=== PATIENT | female | born 1950 | race Caucasian/White ===

== ENCOUNTER 2024-11-25 09:38 | Emergency (ER) | payer OTHER ==
[2024-11-25 09:59] LABS: Absolute Basophils 0.1 K/uL (0-0.5); Absolute Monocytes 0.4 K/uL (0.1-1.3); Basophils % 0.7 % (0-1.3); Eosinophils % 0.3 % (0-4.4); Hematocrit 41.6 % (36.0-45.0); Hemoglobin 14.6 g/dL (12.0-15.0); Lymphocytes % 37.8 % (15.3-44.8); MCV 88.4 fL (80-100); Monocytes % 4.1 % (3.3-12.3); Neutrophils % 57.1 % (41.7-73.7); Platelets 225 thou/uL (152-406); Red Cell Distribution Width 14.3 % (12.1-15.2)
--- NOTE | 2024-11-25 10:09 | RAD REPORT ---
EXAM: CT brain without contrast HISTORY: vertigo;Dizziness COMPARISON: None TECHNIQUE: Multiple contiguous axial images were obtained and a CT of the brain without contrast. Sag ittal and coronal reformats were performed. One or more of the following dose reduction techniques were used: Automated exposure control, adjust ment of the mA and/or kV according to patient size, and/or iterative reconstruction. FINDINGS: No evidence of hydrocephalus, intracranial hemorrhage, or extra-axial fluid collection. The brain is normal in morphology. No evidence of midline shift or areas of brain edema. The calvarium is intact. The visualized paranasal sinuses and mastoid air cells are essentially clear . IMPRESSION: No evidence of acute intracranial abnormality.
[2024-11-25 10:19] LABS: Anion Gap 9.8 mEq/L (5.0-15.0); Potassium 3.8 mEq/L (3.5-5.1)
[2024-11-25] MEDS ORDERED: MECLIZINE HCL 12.5 MG TAB ONE (10:52)
--- NOTE | 2024-11-25 11:07 | EDPHYS ---
Physician Documentation [facility] Name: Roldan Gagnon Age: 73 yrs Sex: Female : 1950 Arrival Date: 11/25/2024 Time: 09:38 Bed 16 Private MD: ED Physician Wilfrido Mckenna HPI: 11/25 09:51 This 73 yrs old Female presents to ER via Unassigned with complaints of Dizziness. sp3 09:51 73-year-old female with history of depression and prior benign vertigo with no other sp3 medical history now presents to the ED with chief complaint of vertigo symptoms described as the room "moving". EMS found patient with normal vital signs except heart rate in the 50-60 range. Patient denies headache, neck pain, extremity pain, chest pain, shortness of breath, other neurological complaint, fall, trauma, travel history, known sick contacts, fever, or any other signs or symptoms on ROS at this time.. Historical: - Allergies: 09:52 Codeine; iw 09:52 Sulfa (Sulfonamide Antibiotics); iw 09:52 Wellbutrin; iw - Home Meds: 09:52 citalopram 40 mg tablet daily [Active]; iw - PMHx: 09:52 Depressive disorder; iw - PSHx: 09:52 bowel resection; hysterectomy; hernia; iw - Immunization history:: Adult Immunizations up to date. - Infectious Disease History:: Denies. - Social history:: Smoking status: Patient reports the use of cigarette tobacco products, smokes one pack cigarettes per day. ROS: 09:52 Constitutional: Negative for fever, chills, and weight loss, Eyes: Negative for injury, sp3 pain, redness, and discharge, ENT: Negative for injury, pain, and discharge, Neck: Negative for injury, pain, and swelling, Cardiovascular: Negative for chest pain, palpitations, and edema, Respiratory: Negative for shortness of breath, cough, wheezing, and pleuritic chest pain, Abdomen/GI: Negative for abdominal pain, nausea, vomiting, diarrhea, and constipation, Back: Negative for injury and pain, MS/Extremity: Negative for injury and deformity, Skin: Negative for injury, rash, and discoloration, Psych: Negative for depression, anxiety, suicide ideation, homicidal ideation, and hallucinations, Allergy/Immunology: Negative for hives, rash, and allergies, Endocrine: Negative for neck swelling, polydipsia, polyuria, polyphagia, and marked weight changes, Hematologic/Lymphatic: Negative for swollen nodes, abnormal bleeding, and unusual bruising, 09:52 All other systems are negative, Exam: 09:52 Constitutional: This is a well developed, well nourished patient who is awake, alert, sp3 and in no acute distress. Head/Face: Normocephalic, atraumatic. ENT: Nares patent. No nasal discharge, no septal abnormalities noted. External auditory canals are clear. Oropharynx with no redness, swelling, or masses, exudates, or evidence of obstruction, uvula midline. Mucous membranes moist. Neck: Trachea midline, no thyromegaly or masses palpated, and no cervical lymphadenopathy. Supple, full range of motion without nuchal rigidity, or vertebral point tenderness. No Meningismus. Chest/axilla: Normal chest wall appearance and motion. Nontender with no deformity. No lesions are appreciated. Cardiovascular: Regular rate and rhythm with a normal S1 and S2. No gallops, murmurs, or rubs. Normal PMI, no JVD. No pulse deficits. Respiratory: Lungs have equal breath sounds bilaterally, clear to auscultation and percussion. No rales, rhonchi or wheezes noted. No increased work of breathing, no retractions or nasal flaring. Abdomen/GI: Soft, non-tender, with normal bowel sounds. No distension or tympany. No guarding or rebound. No evidence of tenderness throughout. Back: No spinal tenderness. No costovertebral tenderness. Full range of motion. Skin: Warm, dry with normal turgor. Normal color with no rashes, no lesions, and no evidence of cellulitis. MS/ Extremity: Pulses equal, no cyanosis. Neurovascular intact. Full, normal range of motion. Psych: Awake, alert, with orientation to person, place and time. Behavior, mood, and affect are within normal limits. 09:52 Neuro: Patient with horizontal nystagmus noted. Pupils are equal bilaterally. Remainder of neurological exam is completely normal., 11:03 ECG was reviewed by the Attending Physician. EKG demonstrates sinus bradycardia 51 bpm sp3 with normal intervals, normal QRS, normal axis, normal ST/T-segment's without evidence of acute ischemia. Vital Signs: 09:50 BP 135 / 80; Pulse 57; Resp 16; Temp 98.1; Pulse Ox 98% on R/A; Weight 90.72 kg; Height iw 5 ft. 7 in. ; Pain 0/10; 10:45 BP 134 / 67; Pulse 57; Resp 15; Pulse Ox 98% on R/A; cm10 11:15 BP 127 / 79; Pulse 58; Resp 16; Pulse Ox 100% on R/A; cm10 11:45 BP 134 / 75; Pulse 58; Resp 16; Pulse Ox 98% on R/A; cm10 09:50 Body Mass Index 31.32 (90.72 kg, 170.18 cm) iw 09:50 Pain Scale: Adult iw MDM: 09:41 Medical Screening Exam initiated sp3 09:53 Data reviewed: vital signs, nurses notes, lab test result(s), EKG, radiologic studies. sp3 ED course: 73-year-old female with vertigo. Differential diagnosis includes peripheral vertigo versus central vertigo versus other intracranial process including bleed. Vital signs are normal here with heart rate at 57. Will obtain EKG, generalized labs including troponin, CT scan of the head and will treat with meclizine 25 mg p.o. Patient is not on any medication for vertigo at the moment. Patient denies any ringing in her ears or other URI type symptoms. Clinically I am not highly suspicious of sepsis, shock, or any other critical pathology at this time. Disposition pending workup and patient course.. 11:05 ED course: Patient feels better. Workup negative and we will safely discharge home with sp3 p.o. meclizine prescription.. 11/25 09:42 Order name: Basic Metabolic Panel; Complete Time: 10:24 sp3 11/25 09:42 Order name: CBC with Diff; Complete Time: 10:24 sp3 11/25 09:42 Order name: Troponin HS; Complete Time: 10:24 sp3 11/25 09:42 Order name: CT Head Brain wo Cont; Complete Time: 10:15 sp3 11/25 09:42 Order name: EKG - Nurse/Tech; Complete Time: 11:00 sp3 11/25 09:42 Order name: IV Saline Lock; Complete Time: 09:53 sp3 11/25 09:42 Order name: Labs collected and sent; Complete Time: 09:53 sp3 Administered Medications: 11:00 Drug: Meclizine PO 25 mg PO once Route: PO; cm10 11:50 Follow up: Response: No adverse reaction; Marked relief of symptoms cm10 Disposition Summary: 11/25/24 11:07 Discharge Ordered Notes: Location: Home sp3 Condition: Stable sp3 Diagnosis - Vertigo sp3 Followup: sp3 - With: Private Physician - When: Upon discharge from the Emergency Department - Reason: Continuance of care Discharge Instructions: - Discharge Summary Sheet sp3 - Vertigo sp3 Forms: - Medication Reconciliation Form sp3 - Antibiotic Education sp3 - Prescription Opioid Use sp3 - Patient Portal Instructions sp3 - Leadership Thank You Letter sp3 Prescriptions: - Meclizine 25 mg Oral Tablet - take 1 tablet ORAL route every 8 hours As needed; 30 tablet; Refills: 0, sp3 Product Selection Permitted Signatures: Dispatcher [employer] EDAugusta Liu, KANA ROGER iw Wilfrido Mckenna MD MD sp3 Aliya Gutiérrez RN RN cm10 Corrections: (The following items were deleted from the chart) 09:42 09:42 BASIC METABOLIC PANEL+C.LAB.BRZ ordered. EDMS EDMS 09:42 09:42 CBC+H.LAB.BRZ ordered. EDMS EDMS 09:42 09:42 Troponin High Sensitivity+C.LAB.BRZ ordered. EDMS EDMS 09:42 09:42 Head Brain Wo Cont+CT.RAD.BRZ ordered. EDMS EDMS
--- NOTE | 2024-11-25 11:07 | ER ---
Nurse's Notes [facility] Name: Roldan Gagnon Age: 73 yrs Sex: Female : 1950 Arrival Date: 11/25/2024 Time: 09:38 Bed 16 Private MD: Diagnosis: Vertigo Presentation: 11/25 09:50 Chief complaint: EMS states: vertigo/dizziness since last night , worse when moving. iw Coronavirus screen: At this time, the client does not indicate any symptoms associated with coronavirus-19. Ebola Screen: No symptoms or risks identified at this time. Initial Sepsis Screen: Does the patient meet any 2 criteria? No. Patient's initial sepsis screen is negative. Does the patient have a suspected source of infection?. Risk Assessment: Do you want to hurt yourself or someone else? Patient reports no desire to harm self or others. Onset of symptoms was November 24, 2024. 09:50 Method Of Arrival: EMS: [facility] iw 09:50 Acuity: GAUTAM 3 iw Historical: - Allergies: 09:52 Codeine; iw 09:52 Sulfa (Sulfonamide Antibiotics); iw 09:52 Wellbutrin; iw - Home Meds: 09:52 citalopram 40 mg tablet daily [Active]; iw - PMHx: 09:52 Depressive disorder; iw - PSHx: 09:52 bowel resection; hysterectomy; hernia; iw - Immunization history:: Adult Immunizations up to date. - Infectious Disease History:: Denies. - Social history:: Smoking status: Patient reports the use of cigarette tobacco products, smokes one pack cigarettes per day. Screenin:07 [facility] ED Fall Risk Assessment (Adult) History of falling in the last 3 months, cm10 including since admission No falls in past 3 months (0 pts) Confusion or Disorientation No (0 pts) Intoxicated or Sedated No (0 pts) Impaired Gait No (0 pts) Mobility Assist Device Used No (0 pt) Altered Elimination No (0 pt) Score/Fall Risk Level 0 - 2 = Low Risk Oriented to surroundings, Maintained a safe environment, Hourly rounding (assess needs \T\ fall precautionary measures) done. Abuse screen: Denies threats or abuse. Denies injuries from another. Nutritional screening: No deficits noted. Tuberculosis screening: No symptoms or risk factors identified. Assessment: 11:00 General: Appears in no apparent distress. comfortable, Behavior is calm, cooperative. cm10 Pain: Denies pain. Neuro: No deficits noted. Level of Consciousness is awake, alert, obeys commands, Oriented to person, place, time, situation, Appropriate for age Reports dizziness. Cardiovascular: Patient's skin is warm and dry. Respiratory: No deficits noted. Airway is patent Respiratory effort is even, unlabored, Respiratory pattern is regular, symmetrical. 11:15 Reassessment: Attempting to ambulate patient, and patient continues to report cm10 dizziness. Dr. Mckenna made aware. 11:55 Reassessment: Pt able to ambulate with no assistance. Pt reports that dizziness has cm10 improved. Patient states feeling better. Patient states symptoms have improved. Vital Signs: 09:50 BP 135 / 80; Pulse 57; Resp 16; Temp 98.1; Pulse Ox 98% on R/A; Weight 90.72 kg; Height iw 5 ft. 7 in. ; Pain 0/10; 10:45 BP 134 / 67; Pulse 57; Resp 15; Pulse Ox 98% on R/A; cm10 11:15 BP 127 / 79; Pulse 58; Resp 16; Pulse Ox 100% on R/A; cm10 11:45 BP 134 / 75; Pulse 58; Resp 16; Pulse Ox 98% on R/A; cm10 09:50 Body Mass Index 31.32 (90.72 kg, 170.18 cm) iw 09:50 Pain Scale: Adult iw ED Course: 09:41 Patient arrived in ED. iw 09:41 Wilfrido Mckenna MD is Attending Physician. sp3 09:51 Triage completed. iw 09:53 Arm band placed on. iw 09:53 Initial lab(s) drawn, by me, sent to lab. Maintain EMS IV. Dressing intact. Good blood iw return noted. Site clean \T\ dry. Gauge \T\ site: 20 LAC. Flushed with 10 mL NS. 09:54 CT Head Brain wo Cont In Process Unspecified. EDMS 11:00 Aliya Gutiérrez, RN is Primary Nurse. cm10 11:00 Patient has correct armband on for positive identification. Bed in low position. Call cm10 light in reach. Side rails up X2. Pulse ox on. NIBP on. 12:02 Provided Education on: Follow-up instructions. cm10 12:03 No provider procedures requiring assistance completed. IV discontinued, intact, cm10 bleeding controlled, No redness/swelling at site. Pressure dressing applied. Administered Medications: 11:00 Drug: Meclizine PO 25 mg PO once Route: PO; cm10 11:50 Follow up: Response: No adverse reaction; Marked relief of symptoms cm10 Medication: 11:07 VIS not applicable for this client. cm10 Outcome: 11:07 Discharge ordered by . phyllis 12:02 Discharged to home ambulatory, cm10 12:02 Condition: good 12:02 Discharge instructions given to patient, Instructed on discharge instructions, follow up and referral plans. medication usage, Demonstrated understanding of instructions, follow-up care, medications, Prescriptions given X 1, 12:03 Patient left the ED. cm10 Signatures: Dispatcher [employer] EDAugusta Liu, RN Wilfrido Vásquez MD MD sp3 Aliya Gutiérrez RN RN cm10
[2024-11-25 12:08] VITALS: TEMP 98.1
[2024-11-25 12:12] VITALS: BP 134/75; O2SAT 98
--- NOTE | 2024-11-29 12:12 | EKG ---
Test Date: 2024-11-25 Test Time: 10:58:32 Residential Program Manager: SHANON MEASUREMENT RESULTS: Intervals: Rate: 51 IN: 184 QRSD: 76 QT: 436 QTc: 401 Dubois: P: 64 IN: 184 QRS: 70 T: 69 INTERPRETIVE STATEMENTS: Sinus bradycardia with sinus arrhythmia Otherwise normal ECG Compared to ECG 06/13/2015 15:08:08 Sinus rhythm no longer present Electronically Signed On 11-29-24 12:09:03 CDT by Rufino Bailon
== END 2024-11-25 12:03 | disposition home or self-care (01) ==
LOC: ER 09:38
DX: R42 Dizziness and giddiness (principal); F17.210 Nicotine dependence, cigarettes, uncomplicated
CPT/HCPCS: 93005; 85025; 80048; 36415; 84484; 70450; 99284; J8597